=== PATIENT | female | born 1955 | race Caucasian/White ===

== ENCOUNTER 2023-01-27 09:33 | Outpatient (RCR) | payer MEDICARE, SELFPAY | END 2023-01-28 23:59 | disposition home or self-care (01) | LOC: SPT 09:33 | PROVIDERS: PCP Psychiatry & Neurology Neurology; Visit Provider Psychiatry & Neurology Neurology | DX: R26.89 Other abnormalities of gait and mobility (principal) | CPT/HCPCS: 97110; 97162 ==

== ENCOUNTER 2023-02-24 06:00 | Outpatient (RCR) | payer MEDICARE, SELFPAY | END 2023-02-27 23:59 | disposition home or self-care (01) | LOC: SPT 06:00 | PROVIDERS: PCP Psychiatry & Neurology Neurology; Visit Provider Psychiatry & Neurology Neurology | DX: G20.C Parkinsonism, unspecified (principal); R26.89 Other abnormalities of gait and mobility | CPT/HCPCS: 97110; 97112; 97530 ==

== ENCOUNTER 2023-02-28 06:00 | Outpatient (RCR) | payer MEDICARE, SELFPAY | END 2023-03-20 23:59 | disposition home or self-care (01) | LOC: SPT 06:00 | PROVIDERS: PCP Psychiatry & Neurology Neurology; Visit Provider Psychiatry & Neurology Neurology | DX: G20.C Parkinsonism, unspecified (principal) | CPT/HCPCS: 97110; 97112; 97530 ==

== ENCOUNTER 2023-04-10 09:30 | Outpatient (CLI) | payer MEDICARE, SELFPAY ==
--- NOTE | 2023-04-10 | ECG_ITS ---
[facility] Test Date: 2023-04-10 Pat Name: Analisa Sharif Department: Room: Gender: Female Owner/Operator: : 1955 Requested By: Scarlet Douglas Order Number: [id number] Lisset MD: Sahara Nava M.D. Interpretive Statements NAME OF STUDY: TREADMILL STRESS ECHOCARDIOGRAM INDICATION: Chest Pain PROCEDURE: At the baseline, the patient's blood pressure was 114/67 with a heart rate of 79. The baseline electrocardiogram showed normal sinus rhythm with normal ST-Ts.. The patient exercised for 6 minutes and 43 seconds on a standard Brian protocol. Patient attained a maximum heart rate of 150 beats per minute(101% of the maximum predicted heart rate) with a blood pressure at the peak exercise of 122/56 mm Hg. The EKG at the peak exercise revealed 1 to 1.[address] depressions in leads II, III and aVF. Patient did not have any chest pain or any significant EKG changes with the exercise During the recovery phase, there were no new changes. The EKG reverted back to the baseline Blood pressure at the end of the recovery phase was 105/64 mm Hg with a heart rate of 85 per minute. Echocardiographic pictures were taken at the baseline, immediately following the peak exercise and during the recovery phase. CONCLUSION: 1. Abnormal EKG response to treadmill exercise suggesting inferior wall ischemia 2. No exercise-induced chest pain or cardiac arrhythmia 3. Fair exercise tolerance, attained a maximum of 10.2 METs 4. Please see separate report for the echocardiographic response to exercise. Electronically Signed On 04-11-2023 18:41:24 [employer] by Sahara Nava M.D. [email or web address]
[2023-04-10 09:39] VITALS: BMI 24.4
--- NOTE | 2023-04-10 09:46 | USCV_ITS ---
Stress Echo Analisa Sharif Age: 67 Gender: F : 1955 Exam Date: 04/10/2023 10:06 Ordering Phys: Scarlet DouglasP Technologist: Denys Paulino Exam Location: [facility] [place] Indication: Chest Pain Rhythm: Sinus Patient History: Chest pain, Family history, 67 year wellness exam Cardiac Medications: None Medications in past 24 hours: None Contrast: Stress Results Protocol: Brian Total dose(mL): Exercise Duration (min:sec): 06:43 METS: 10.2 Resting HR: 85 Resting BP: 83 / 56 Peak HR: 157 Peak BP: 147 / 67 Max Predicted HR: 155 101 % Max Predicted HR Target HR: 132 Double Product: [id number] Stress Summary: The patient's target heart rate was achieved The hemodynamic response to exercise was normal BP Response: Normal Reason for Termination: Test terminated after reaching maximum heart rate Cardiac Symptoms: Short of Breath ECG Analysis Resting ECG: Please see separate report Stress ECG: Please see separate report Arrhythmia: Please see separate report MEASUREMENTS (Male/Female) Normal Values FINDINGS Baseline echocardiogram revealed normal LV size and ejection fraction. Segmental wall motion analysis revealing no gross wall motion abnormalities. Mild concentric left-ventricular hypertrophy was noted. The right-sided chambers appears to be slightly enlarged. No pericardial effusion With the peak exercise, there was good augmentation of all the segments with no exercise-induced wall motion normalities During the recovery phase, no new changes were noted CONCLUSIONS 1. Normal echocardiographic response to exercise. 2. Low probability for significant coronary ischemia, based on the above findings 3. The right atrium and right ventricle appear to be slightly enlarged Dr Sahara Nava MD [facility] (Electronically Signed) Final Date: 11 April 2023 20:04 S
[2023-04-10 10:40] VITALS: BP 115/65; PULSE 82
== END 2023-04-10 09:31 | disposition home or self-care (01) ==
PROVIDERS: PCP Family Medicine; Visit Provider Nurse Practitioner Family
DX: R07.9 Chest pain, unspecified (principal)
CPT/HCPCS: 93017; 93350